=== PATIENT | female | born 2005 | race Caucasian/White ===

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

== ENCOUNTER 2023-12-16 10:30 | Emergency (ER) | payer MEDICAID, OTHER ==
[~2023-12-16] VITALS: Ht 157.5 cm; Wt 105.0 kg
[2023-12-16 10:37] VITALS: O2SAT 99
[2023-12-16] MEDS ORDERED: IBUP-2029 MT (15:12)
[2023-12-16 15:30] VITALS: BP 129/85; PULSE 78; RESP 17; TEMP 98.5
[2023-12-16] MEDS: IBUPROFEN 600MG TABLET PO ONE (15:33)
== END 2023-12-16 15:34 | disposition home or self-care (01) ==
LOC: ER 12:19
DX: N89.8 Other specified noninflammatory disorders of vagina (principal); Z90.49 Acquired absence of other specified parts of digestive tract
CPT/HCPCS: 20612; 99284